=== PATIENT | male | born 1975 | race Caucasian/White ===

== ENCOUNTER 2016-06-14 09:32 | Emergency (ER) | payer OTHER ==
[~2016-06-14] VITALS: Ht 167.6 cm; Wt 80.0 kg
[2016-06-14 09:34] VITALS: Ht 167.6 cm; Wt 80.0 kg
[2016-06-14] MEDS ORDERED: KETOROLAC 30 MG INJ IV STA (10:25)
[2016-06-14 10:43] LABS: ADD SCAN DIFF NO
[2016-06-14 10:48] LABS: BASOPHIL # 0.1 10^3/ul (0.0-0.1); BASOPHILS % 0.7 % (0.0-2.0); EOSINOPHILS # 0.1 10^3/ul (0.0-0.5); EOSINOPHILS % 1.2 % (0.0-7.0); HEMATOCRIT 40.3 % (42.0-52.0); HEMOGLOBIN 14.1 g/dl (14.0-18.0); LYMPHOCYTES # 2.1 10^3/ul (0.8-2.9); LYMPHOCYTES % 28.6 % (15.0-51.0); MEAN CORPUSCULAR HEMOGLOBIN 29.1 pg (29.0-33.0); MEAN CORPUSCULAR VOLUME 83.3 fl (82.0-101.0); MEAN PLATELET VOLUME 9.1 fl (7.4-10.4); MONOCYTE # 0.4 10^3/ul (0.3-0.9); MONOCYTES % 5.5 % (0.0-11.0); NEUTROPHIL # 4.7 10^3/ul (1.6-7.5); NEUTROPHILS % 63.5 % (39.0-77.0); PLATELET COUNT 289 10^3/UL (140-415); RED BLOOD COUNT 4.84 10^6/ul (4.70-6.10); RED CELL DISTRIBUTION WIDTH 12.4 % (11.5-14.5); WHITE BLOOD COUNT 7.5 10^3/ul (4.8-10.8)
--- NOTE | 2016-06-14 11:14 | RADRPT ---
PROCEDURE: CT Abdomen and Pelvis without contrast. CLINICAL INDICATION: Left lower quadrant pain TECHNIQUE: CT scan of the abdomen and pelvis without contrast was performed on a multidetector hig h-resolution CT scanner. The patient was scanned without intravenous contrast. Coronal and sagittal reformatted images were obtained from the axial source images. Images were reviewed on a high-resol [employer] PACS workstation. The total exam CTDI equals 14.68 mGy and the total exam DLP equals 898.47 mG y-cm. One or more of the following dose reduction techniques were used: Automated exposure control. Adjustment of the mA and/or kV according to patient size. Use of iterative reconstruction technique. COMPARISON: None FINDINGS: CT abdomen: The lung bases are remarkable for calcified granuloma in the right lung base anteriorly. The heart size is normal, without pericardial thickening or effusion. The liver is normal in size and density without focal mass or intrahepatic biliary dilatation. The spleen is normal in size and homogeneou s in density. The stomach is partially collapsed, but is grossly unremarkable. The pancreas as vis ualized is normal. The gallbladder and biliary tree are unremarkable and there is no evidence for b iliary dilatation. The adrenal glands are symmetric and normal. The kidneys are symmetrically unre markable as well. There is a 4 mm nonobstructing stone in the upper pole left kidney. There is mild prominence of the left renal pelvis without obstructing ureteral stone. The aorta is of normal caliber. There is no retroperitoneal lymphadenopathy. The lorraine hepatis fransico on is clear. The bowel and mesentery, as visualized, are equally unremarkable. CT pelvis: The small bowel loops situated within the pelvis are unremarkable. The appendix is normal. There is a small fat containing left inguinal hernia. The pelvic organs are normal. The pelvic sidewalls and inguinal regions are clear. The sigmoid colon and rectum are unremarkable. No mass, lymphadenopat hy, or free fluid is seen. No acute inflammation is seen. No osteolytic or osteoblastic lesion is detected. IMPRESSION: 1. A 4 mm nonobstructing stone in the upper pole left kidney. Mild prominence of the left renal pe lvis without obstructing ureteral stone. 2. Fat containing small left inguinal hernia. 3. Normal appendix. RPTAT: BB .Omayra Alba MD, MD Date Time Electronically viewed and signed by .Omayra Alba MD, MD on 06/14/2016 11:13 .O/
[2016-06-14 11:36] LABS: ADD UMIC YES; URINE BILIRUBIN (Dip) NEGATIVE (NEGATIVE); URINE BLOOD (Dip) 3+ (NEGATIVE); URINE COLOR LT. YELLOW (YELLOW); URINE GLUCOSE (Dip) NEGATIVE (NEGATIVE); URINE KETONES (Dip) NEGATIVE (NEGATIVE); URINE LEUKOCYTE ESTERASE (Dip) NEGATIVE (NEGATIVE); URINE NITRITE (Dip) NEGATIVE (NEGATIVE); URINE TOTAL PROTEIN (Dip) NEGATIVE (NEGATIVE); URINE UROBILINOGEN (Dip) 0.2 E.U./dL (0.1-1.0)
[2016-06-14] MEDS ORDERED: IBUP-1542 PO (11:58)
[2016-06-14] MEDS ORDERED: HYDR-906 PO (11:58)
[2016-06-14] MEDS ORDERED: TAMS-14 PO (11:58)
[2016-06-14 11:59] LABS: BACTERIA,URINE FEW; URINE RBCS 25-50 /HPF (0)
--- NOTE | 2016-06-14 12:05 | ERD ---
ER Documentation Chief Complaint Date/Time DATE: 06/14/16 TIME: 11:59 Chief Complaint pt bib family with c/o left abd pain, hx hernia from PMD dx HPI Patient is a 41-year-old male with past medical history of a left inguinal hernia, who presents to the emergency department with left lower quadrant pain which started approximately 1 hour ago. Patient states he was at home when he suddenly had sharp left lower quadrant pain. Patient describes the pain to be lessened now however he states his current pain level is a 5 out of 10. Patient states previously his pain level is a 10 out of 10. Patient denies any fevers, chills, nausea, vomiting, upper abdominal pain, cough, chest pain, shortness of breath or loss of consciousness. Patient denies any pain with urination, frequency, urgency, hematuria. Patient states his last bowel movement was yesterday, normal, no diarrhea. Patient states that he was recently diagnosed with a left inguinal hernia and has an appointment pending with a general surgeon for surgical repair. Patient does report heavy lifting often. Patient denies any testicular pain, vesicular swelling, penile discharge or penile pain. ROS All systems reviewed and are negative except as per history of present illness. Medications Home Meds Active Scripts Tamsulosin Hcl* (Flomax*) 0.4 Mg Cap.er.24h, 0.4 MG PO BID, #20 CAP Prov:CHUCK BARRON PA-C 06/14/16 Hydrocodone/Acetaminophen ([place] 5-325 Tablet) 1 Each Tablet, 1 TAB PO Q6H Y for PAIN, #7 TAB Prov:CHUCK BARRON-C 06/14/16 Ibuprofen* (Motrin*) 600 Mg Tab, 600 MG PO Q6, #30 TAB Prov:CHUCK BARRON-C 06/14/16 Allergies Allergies: Coded Allergies: No Known Allergy (Unverified , 06/14/16) PMhx/Soc Medical and Surgical Hx: pt denies Medical Hx, pt denies Surgical Hx Hx Alcohol Use: No Hx Substance Use: No Hx Tobacco Use: No Smoking Status: Never smoker FmHx Family History: No diabetes Physical Exam Vitals Vital Signs Date Time Temp Pulse Resp B/P Pulse Ox O2 Delivery O2 Flow Rate FiO2 06/14/16 09:34 97.9 67 16 145/86 100 Physical Exam GENERAL: Well-developed, well-nourished male. Appears in no acute distress. HEAD: Normocephalic, atraumatic. EYES: Pupils are equally reactive bilaterally. EOMs grossly intact. No conjunctival erythema. ENT: Moist mucous membranes. No uvula deviation. No kissing tonsils. NECK: Supple. No meningismus. Normal range of motion of the neck. LUNG: Clear to auscultation bilaterally. No rhonchi, wheezing, rales or coarse breath sounds. HEART: Regular rate and rhythm. No murmurs, rubs or gallops. ABDOMEN: No scars, ecchymosis or rashes noted. Soft and nondistended. Tender to palpation of the left lower quadrant. positive bowel sounds in all four quadrants. No rebound tenderness, no guarding. (-) McBurney's point tenderness. L CVA tenderness. MALE GENITALIA: Normal, uncircumcised penis without any lesions, masses or deformities. No penile discharge noted. Normal scrotum without any masses, tenderness, swelling or erythema. L inguinal hernia, reducible, palpated with coughing. BACK: No midline tenderness. EXTREMITIES: Equal pulses bilaterally. No peripheral clubbing, cyanosis or edema. No unilateral leg swelling. NEUROLOGIC: Alert and oriented. Moving all four extremities without any difficulty. Normal speech. Steady gait. SKIN: Normal color. Warm and dry. No rashes or lesions. Result Diagram: 06/14/16 1030 06/14/16 1030 Results 24 hrs Laboratory Tests Test 06/14/16 10:30 06/14/16 10:38 White Blood Count 7.510^3/ul Red Blood Count 4.8410^6/ul Hemoglobin 14.1g/dl Hematocrit 40.3% Mean Corpuscular Volume 83.3fl Mean Corpuscular Hemoglobin 29.1pg Mean Corpuscular Hemoglobin Concent 35.0g/dl Red Cell Distribution Width 12.4% Platelet Count 90444^3/UL Mean Platelet Volume 9.1fl Neutrophils % 63.5% Lymphocytes % 28.6% Monocytes % 5.5% Eosinophils % 1.2% Basophils % 0.7% Nucleated Red Blood Cells % 0.0/100WBC Neutrophils # 4.710^3/ul Lymphocytes # 2.110^3/ul Monocytes # 0.410^3/ul Eosinophils # 0.110^3/ul Basophils # 0.110^3/ul Nucleated Red Blood Cells # 0.010^3/ul Sodium Level 144mmol/L Potassium Level 3.6mmol/L Chloride Level 105mmol/L Carbon Dioxide Level 23mmol/L Anion Gap 20 Blood Urea Nitrogen 14mg/dl Creatinine 0.78mg/dl Glucose Level 111mg/dl Calcium Level 9.2mg/dl Total Bilirubin 0.4mg/dl Direct Bilirubin 0.00mg/dl Indirect Bilirubin 0.4mg/dl Aspartate Amino Transf (AST/SGOT) 23IU/L Alanine Aminotransferase (ALT/SGPT) 28IU/L Alkaline Phosphatase 60IU/L Total Protein 7.9g/dl Albumin 4.9g/dl Globulin 3.00g/dl Albumin/Globulin Ratio 1.63 Lipase 358U/L Urine Color LT. YELLOW Urine Clarity CLEAR Urine pH 5.5 Urine Specific [place] 1.025 Urine Ketones NEGATIVE Urine Nitrite NEGATIVE Urine Bilirubin NEGATIVE Urine Urobilinogen 0.2 E.U./dL Urine Leukocyte Esterase NEGATIVE Urine Microscopic RBC 25-50/HPF Urine Microscopic WBC 0-2/HPF Urine Epithelial Cells FEW Urine Bacteria FEW Urine Hemoglobin 3+ Urine Glucose NEGATIVE% Urine Total Protein NEGATIVE Current Medications Medications (Trade) Dose Ordered Sig/Nima Route PRN Reason Start Time Stop Time Status Last Admin Dose Admin Ketorolac Tromethamine (Toradol) 30 mg ONCE STAT IV 06/14/16 10:25 06/14/16 10:27 DC 06/14/16 10:33 Procedures/MDM ED COURSE: The patient was stable throughout ED course. I kept the patient and/or family informed of laboratory and diagnostic imaging results throughout the ED course. DIAGNOSTIC IMAGING: Read by radiologist. Patient: SHAKIRA MANRIQUEZ : 1975 Age: 41 Sex: M MR #: [id number] DOS: 06/14/16 1025 Ordering MD: CHUCK BARRON PA-C Location: [facility] Room/Bed: PROCEDURE: CT Abdomen and Pelvis without contrast. CLINICAL INDICATION: Left lower quadrant pain TECHNIQUE: CT scan of the abdomen and pelvis without contrast was performed on a multidetector high-resolution CT scanner. The patient was scanned without intravenous contrast. Coronal and sagittal reformatted images were obtained from the axial source images. Images were reviewed on a high-resolution PACS workstation. The total exam CTDI equals 14.68 mGy and the total exam DLP equals 898.47 mGy-cm. One or more of the following dose reduction techniques were used: Automated exposure control. Adjustment of the mA and/or kV according to patient size. Use of iterative reconstruction technique. COMPARISON: None FINDINGS: CT abdomen: The lung bases are remarkable for calcified granuloma in the right lung base anteriorly. The heart size is normal, without pericardial thickening or effusion. The liver is normal in size and density without focal mass or intrahepatic biliary dilatation. The spleen is normal in size and homogeneous in density. The stomach is partially collapsed, but is grossly unremarkable. The pancreas as visualized is normal. The gallbladder and biliary tree are unremarkable and there is no evidence for biliary dilatation. The adrenal glands are symmetric and normal. The kidneys are symmetrically unremarkable as well. There is a 4 mm nonobstructing stone in the upper pole left kidney. There is mild prominence of the left renal pelvis without obstructing ureteral stone. The aorta is of normal caliber. There is no retroperitoneal lymphadenopathy. The lorraine hepatis region is clear. The bowel and mesentery, as visualized, are equally unremarkable. CT pelvis: The small bowel loops situated within the pelvis are unremarkable. The appendix is normal. There is a small fat containing left inguinal hernia. The pelvic organs are normal. The pelvic sidewalls and inguinal regions are clear. The sigmoid colon and rectum are unremarkable. No mass, lymphadenopathy, or free fluid is seen. No acute inflammation is seen. No osteolytic or osteoblastic lesion is detected. IMPRESSION: 1. A 4 mm nonobstructing stone in the upper pole left kidney. Mild prominence of the left renal pelvis without obstructing ureteral stone. 2. Fat containing small left inguinal hernia. 3. Normal appendix. RPTAT: BB .Omayra Alba MD, Date Time Electronically viewed and signed by .Omayra Alba MD, on 06/14/2016 11:13 .O/ CC: CHUCK BARRON PA-C MEDICATIONS GIVEN: Toradol IV Patient tolerated medication well with no adverse reactions. Patient reported improvement in pain. MEDICAL DECISION MAKING: This is a 41-year-old male with a left inguinal hernia who presents with left lower quadrant pain that started 1 hour ago. Vital signs were reviewed. Patient is afebrile. Abdominal exam revealed left lower quadrant pain, + left-sided CVA tenderness.. CBC showed no evidence of systemic infection or severe anemia. CMP showed no evidence of electrolyte abnormalities, severe acidosis, alkalosis , renal failure, or liver disease. Lipase was elevated at 358 hours showed no signs of acute pancreatitis. Lipase was not elevated at 3 times a normal value. Low suspicion for pancreatitis at this time. UA showed no evidence of acute infection, + hematuria. Hematuria findings likely due to nephrolithiasis. CT abdomen and pelvis showed A 4 mm nonobstructing stone in the upper pole left kidney. Mild prominence of the left renal pelvis without obstructing ureteral stone. Fat containing small left inguinal hernia. Normal appendix. At this time, patient's presentation is most consistent with nephrolithiasis and inguinal hernia. I have a much lower clinical concern for acute coronary syndrome, AAA, mesenteric ischemia, lower lobe pneumonia, DKA, bowel perforation , bowel obstruction, cholecystitis, choledocholithiasis, ascending cholangitis, hepatic abscess, pancreatitis, splenic rupture, diverticulitis, UTI, pyelonephritis, appendicitis, constipation, strangulated hernia, incarcerated hernia, testicular torsion, epididymitis, urethritis, or prostatitis. PRESCRIPTIONS: Ibuprofen, [place], Flomax DISCHARGE: At this time, patient is stable for discharge and outpatient management. I discussed the patient's laboratory and CT findings with my supervising physician , Dr. Ambriz. Dr. Ambriz agrees with the patient's diagnosis and the patient is stable for outpatient management and discharge. Patient provided with a copy of all imaging and blood work obtained today. I have instructed the patient to follow-up with his/her primary care physician in 1-2 days. Patient will need to follow-up with his primary care physician for referral to a urologist. Patient should also follow-up with general surgeon for inguinal hernia. I have instructed the patient to promptly return to the ER at any time for any new or worsening symptoms including increased pain, nausea, vomiting, diarrhea, fever, weakness or LOC. The patient and/or family expressed understanding of and agreement with this plan. All questions were answered. Home care instructions were provided. Departure Diagnosis: Primary Impression: Nephrolithiasis Additional Impression: Inguinal hernia Obstruction and gangrene presence: without obstruction or gangrene Laterality : unilateral Recurrence: not specified as recurrent Qualified Code: K40.90 - Unilateral inguinal hernia without obstruction or gangrene, recurrence not specified Condition: Stable Patient Instructions: Hernia (Inguinal, Ventral, Umbilical), Kidney Stone W/ Colic Referrals: [facility] MD,MARVEL BUCK,KINZA LIMON,JANIS CHAN,ANDRES Belcher [facility] YOU HAVE RECEIVED A MEDICAL SCREENING EXAM AND THE RESULTS INDICATE THAT YOU DO NOT HAVE A CONDITION THAT REQUIRES URGENT TREATMENT IN THE EMERGENCY DEPARTMENT. FURTHER EVALUATION AND TREATMENT OF YOUR CONDITION CAN WAIT UNTIL YOU ARE SEEN IN YOUR DOCTORS OFFICE WITHIN THE NEXT 1-2 DAYS. IT IS YOUR RESPONSIBILITY TO MAKE AN APPOINTMENT FOR FOLOW-UP CARE. IF YOU HAVE A PRIMARY DOCTOR --you should call your primary doctor and schedule an appointment IF YOU DO NOT HAVE A PRIMARY DOCTOR YOU CAN CALL OUR PHYSICIAN REFERRAL HOTLINE AT IF YOU CAN NOT AFFORD TO SEE A PHYSICIAN YOU CAN CHOSE FROM THE FOLLOWING [facility] [address] [facility]. [facility] [address] [facility]. [facility] [address] [facility] [facility] [address] [facility]. [facility] [address] [facility]. [facility]. [address] [facility] [facility] YOU HAVE RECEIVED A MEDICAL SCREENING EXAM AND THE RESULTS INDICATE THAT YOU DO NOT HAVE A CONDITION THAT REQUIRES URGENT TREATMENT IN THE EMERGENCY DEPARTMENT. FURTHER EVALUATION AND TREATMENT OF YOUR CONDITION CAN WAIT UNTIL YOU ARE SEEN IN YOUR DOCTORS OFFICE WITHIN THE NEXT 1-2 DAYS. IT IS YOUR RESPONSIBILITY TO MAKE AN APPOINTMENT FOR FOLOW-UP CARE. IF YOU HAVE A PRIMARY DOCTOR --you should call your primary doctor and schedule and appointment IF YOU DO NOT HAVE A PRIMARY DOCTOR YOU CAN CALL OUR PHYSICIAN REFERRAL HOTLINE AT . IF YOU CAN NOT AFFORD TO SEE A PHYSICIAN YOU CAN CHOSE FROM THE FOLLOWING [facility] INSTITUTIONS: [facility] [address] [place] [address] [facility] [address] [place] [address] [facility] [address] [place] [address] [facility] Additional Instructions: Call your primary care doctor TOMORROW for an appointment during the next 1-2 days.See the doctor sooner or return here if your condition worsens before your appointment time. Follow-up with your general surgeon for your hernia. Follow-up with urologist for kidney stones. Drink plenty of fluids. Take medication as prescribed. Take pain medication as needed. CHUCK BARRON PA-C Jun 14, 2016 12:05
[2016-06-14 12:14] LABS: ALBUMIN 4.9 g/dl (3.3-4.9)
[2016-06-14 12:15] LABS: POTASSIUM 3.6 mmol/L (3.5-5.1)
[2016-06-14 12:17] LABS: ALBUMIN/GLOBULIN RATIO 1.63; BILIRUBIN,INDIRECT 0.4 mg/dl (0-1.1); BILIRUBIN,TOTAL 0.4 mg/dl (0.2-1.3); CREATININE 0.78 mg/dl (0.61-1.24); TOTAL PROTEIN 7.9 g/dl (6.1-8.1)
[2016-06-14 12:18] LABS: CALCIUM 9.2 mg/dl (8.4-10.2)
== END 2016-06-14 12:41 | disposition home or self-care (01) ==
LOC: FTE 09:32
DX: N20.0 Calculus of kidney (principal); K40.90 Unilateral inguinal hernia, without obstruction or gangrene, not specified as recurrent
CPT/HCPCS: 36415; 74176; 80053; 81001; 81003; 83690; 85025; 96374; J1885; Z7502

== ENCOUNTER 2018-10-25 15:33 | Emergency (ER) | payer MEDICAID, OTHER ==
[~2018-10-25] VITALS: Ht 160 cm; Wt 86.5 kg
[~2018-10-25 15:33] MED LIST: CEPH-443 PO; HYDR-4011 PO; IBUP-1542 PO; SULF1TAB31 PO; TAMS-14 PO
[2018-10-25 15:38] VITALS: Ht 160 cm; Wt 86.5 kg
[2018-10-25] MEDS ORDERED: ERTAPENEM SODIUM 1 GM in SOD CHLORIDE 0.9% 100 ML IVPB ONE (17:30)
--- NOTE | 2018-10-25 17:59 | ERD ---
ER Documentation Chief Complaint Chief Complaint sent by PMD; hernia on groin for 2 years getting more painful per pt HPI This is a 43-year-old male who has a history of a bilateral inguinal hernia and he is complaining of 4 days of progressive redness to the skin over his left inguinal hernia. He was sent by his primary because he might have an abscess. There is no abdominal pain no nausea vomiting or diarrhea skin is very tender to touch slight induration ROS All systems reviewed and are negative except as per history of present illness. Medications Home Meds Active Scripts Hydrocodone/Acetaminophen ([place] 5-325 Tablet) 1 Each Tablet, 1 TAB PO Q6H PRN for PAIN, #12 TAB Prov:LEKKOS,APOSTOLOS A. DO 10/25/18 Sulfamethoxazole/Trimethoprim* (Bactrim Ds* Tablet) 1 Each Tablet, 1 TAB PO BID, #14 TAB Prov:LEKKOS,APOSTOLOS A. DO 10/25/18 Cephalexin* (Keflex*) 500 Mg Capsule, 500 MG PO QID for 7 Days, CAP Prov:LEKKOS,APOSTOLOS A. DO 10/25/18 Tamsulosin Hcl* (Flomax*) 0.4 Mg Cap.er.24h, 0.4 MG PO BID, #20 CAP Prov:CHUCK BARRON PA-C 06/14/16 Hydrocodone/Acetaminophen ([place] 5-325 Tablet) 1 Each Tablet, 1 TAB PO Q6H PRN for PAIN, #7 TAB Prov:CHUCK BARRON PA-C 06/14/16 Ibuprofen* (Motrin*) 600 Mg Tab, 600 MG PO Q6, #30 TAB Prov:CHUCK BARRON PA-C 06/14/16 Allergies Allergies: Coded Allergies: fluconazole (Verified Allergy, Unknown, rash, 10/25/18) PMhx/Soc Medical and Surgical Hx: pt denies Medical Hx, pt denies Surgical Hx Hx Alcohol Use: Yes (occasional) Hx Substance Use: No Hx Tobacco Use: No Smoking Status: Never smoker FmHx Family History: No coronary disease Physical Exam Vitals Vital Signs Date Temp Pulse Resp B/P (MAP) Pulse Ox O2 O2 Flow FiO2 Time Delivery Rate 10/25/18 97.9 82 20 149/100 98 15:38 (116) Physical Exam Const: No acute distress Head: Atraumatic Eyes: Normal Conjunctiva ENT: Normal External Ears, Nose and Mouth. Neck: Full range of motion. No meningismus. Resp: Clear to auscultation bilaterally Cardio: Regular rate and rhythm, no murmurs Abd: Soft, non tender, non distended. Normal bowel sounds Skin: The right inguinal region has some erythema with slight induration, induration is a size of a quarter, there is nothing to incise and drain at this time. Erythema is approximately 3 inches by inch and a half Back: No midline or flank tenderness Ext: No cyanosis, or edema Neur: Awake and alert Psych: Normal Mood and Affect Results 24 hrs Current Medications Medications Dose Sig/Nima Start Time Status Last (Trade) Ordered Route PRN Stop Time Admin Dose Reason Admin Ertapenem 1 100 ml @ ONCE ONCE 10/25/18 gm/ Sodium 200 mls/hr IVPB 17:30 Chloride 10/25/18 17:59 Procedures/MDM We will give a dose of Invanz IV here. Until the patient that this is not ready to be cut yet and that it could be ready in a few days however it may also go away. I discussed with him antibiotic therapy as well as doing warm hot compresses 4 times a day Departure Diagnosis: Primary Impression: Cellulitis Site of cellulitis: other site Qualified Codes: L03.818 - Cellulitis of other sites Condition: Stable Patient Instructions: Cellulitis CHING JUAREZ DO Oct 25, 2018 17:59
[2018-10-25 19:55] VITALS: BP 125/88; PULSE 67; RESP 20
== END 2018-10-25 19:57 | disposition home or self-care (01) ==
LOC: E/R 15:33
DX: L03.314 Cellulitis of groin (principal)
CPT/HCPCS: 96374; J1335; Z7502; Z7610